=== PATIENT | male | born 1960 | race African-American/Black ===

== ENCOUNTER 2020-03-20 16:00 | Emergency (ER) | payer MEDICARE, SELFPAY ==
[2020-03-20 16:14] VITALS: BP 131/106; PULSE 72; RESP 20; TEMP 36.9; O2SAT 99
--- NOTE | 2020-03-20 16:22 | ECG_ITS ---
Measurements Intervals [place] Rate: 71 P: 63 IN: 157 QRS: 10 QRSD: 81 T: 51 QT: 378 QTc: 412 Interpretive Statements SINUS RHYTHM NORMAL ECG Electronically Signed On 03-20-2020 16:49:37 DRAWING IN HAND by Logan Castaneda D.O.
[2020-03-20 16:37] LABS: Basophils Absolute Auto 0.04 K/mm3 (0.00-0.10); Basophils Percent Auto 0.4 % (0.0-1.0); Eosinophils Absolute Auto 0.03 K/mm3 (0.02-0.50); Eosinophils Percent Auto 0.3 % (1.0-6.0); Hematocrit 37.9 % (40.0-54.0); Hemoglobin 12.1 g/dL (14.0-18.0); Immature Granulocyte Absolute 0.03 K/mm3 (0.00-0.00); Immature Granulocyte Percent A 0.3 % (0.0-0.0); Lymphocytes Absolute Auto 2.78 K/mm3 (1.10-4.50); Mean Corpuscular HGB Conc 31.9 g/dL (32.0-36.0); Mean Corpuscular Hemoglobin 28.6 pg (27.0-31.0); Mean Corpuscular Volume 89.6 fL (78.0-102.0); Mean Platelet Volume 9.2 fl (8.7-11.0); Monocytes Absolute Auto 0.58 K/mm3 (0.10-0.90); Monocytes Percent Auto 5.8 % (2.0-11.0); Neutrophils Absolute Auto 6.5 K/mm3 (1.7-7.2); Neutrophils Percent Auto 65.2 % (50.0-70.0); Platelet Count Result 262 K/mm3 (150-420); Red Blood Count 4.23 M/mm3 (4.70-6.10); Red Cell Distribution Width 13.6 % (11.6-14.4); White Blood Count 9.9 K/mm3 (4.8-10.8)
[2020-03-20 16:45] VITALS: BP 115/62; PULSE 67; RESP 20; O2SAT 100
--- NOTE | 2020-03-20 16:52 | ED.ABDPAIN ---
HPI - Abdominal Pain General Chief Complaint: Abdominal Pain Stated Complaint: AMB Time Seen by Provider: 03/20/20 16:07 Source: patient Mode of arrival: EMS Limitations: other (education status, he cannot read, and is a poor historian) History of Present Illness HPI narrative: Patient was out shopping and had cramping in his abdomen rather severe which brought him in. He also had some sharp pain in his left arm as well. He is taking Bentyl on a regular basis. He is scheduled to have a stress test soon, and this left arm pain is not something that is new. He has had no diarrhea. He has had pain all over at times. MD elicited complaint: abdominal pain Pain Consistency: intermittent Location: other (Left upper quadrant crampy abdominal pain, also sharp pain in left arm) Severity: similar to previous episodes Pain scale (0-10): 8 Quality: cramping Radiation: other (throughout abdomen) Exacerbating factors: nothing Relieving factors: nothing Associated symptoms: denies other symptoms Related Data Home Medications Medication Instructions Recorded Confirmed aspirin [Adult Low Dose Aspirin] 81 mg PO DAILY 03/20/20 03/20/20 atorvastatin 40 mg PO DAILY 03/20/20 03/20/20 dicyclomine 20 mg PO TID PRN 03/20/20 03/20/20 hydrocodone-acetaminophen 1 tablet PO Q6H PRN 03/20/20 03/20/20 lisinopril-hydrochlorothiazide 1 tablet PO BID 03/20/20 03/20/20 meclizine 25 mg PO DAILY PRN 03/20/20 03/20/20 Allergies Allergy/AdvReac Type Severity Reaction Status Date / Time No Known Allergies Allergy Verified 03/20/20 16:30 Review of Systems Review of Systems: Narrative: Abdominal pain, cramping in LUQ relatively severe, associated with some sharp left arm pain and hurting all over he says. He has had a cough and had a fever about 10 days ago. He still has a runny nose he says, but the cough and the fever has been gone for several days. Constitutional: Constitutional: Reports fatigue ENT: Reports vertigo Cardiovascular: Comments: Sharp chest pain at times, but not associated with activity. He is scheduled for a stress test. Gastrointestinal: Comments: Abdominal cramping is common with this patient, and he is on bentyl 20mg prn. PMFSH Family History Family History (Updated 03/20/20 @ 17:32 by Jordon Bryant MD) Other Hypertension Social History Social History (Updated 03/20/20 @ 17:34 by Jordon Bryant MD) Social History: marijuana, at times Alcohol intake: never Gender identity (if verbalized by the patient): Male Exam Const: General: no acute distress Orientation/consciousness: patient oriented x3 Other: morbidly obese HENMT: Head: normal to inspection Face and sinus: normal facial exam Other: no teeth, mucosa of mouth normal, throat not well visualized Eyes: Conjunctivae: conjunctivae normal Neck: Neck: normal visual inspection Chest: Chest palpation & inspection: normal inspection of the chest Resp: Effort & Inspection: normal respiratory effort Auscultation: clear to auscultation bilaterally Cardio: Rate: regular rate Rhythm: regular rhythm GI: GI Palp: Yes Soft to palpation Skin: General skin exam: normal color Neuro: General: patient oriented x3 Extrem: General: normal to inspection Psych: Appearance: grossly normal Affect: normal affect Thought content: Yes Normal thought content present Course Course Emergency Course: Labs were drawn. An EKG was done and was unremarkable. He took one of his hydrocodone tablets and one of his bentyl tablets just after he came in. After a few minutes he was feeling much better and his abdominal pain was gone. His arm pain had resolved before he came in. Labs were unremarkable except for an elevated protein and creatinine of 2.0. He decided to sign out AMA before his second troponin came back. We were repeating a troponin when he signed out AMA. His second troponin was negative when it came back. He is scheduled to see his doctor andrey
[2020-03-20 16:54] LABS: Alanine Aminotransferase 15 U/L (16-63); Albumin Level 3.3 g/dL (3.4-5.0); Alkaline Phosphatase 71 U/L (46-116); Anion Gap 9 mmol/L (8-16); Aspartate Amino Transferase 13 U/L (15-37); Bilirubin,Total 0.2 mg/dL (0.00-1.00); Blood Urea Nitrogen 20 mg/dL (7-18); Calcium 9.1 mg/dL (8.5-10.1); Carbon Dioxide 26 mmol/L (21-32); Chloride 101 mmol/L (98-108); Estimated CRCL calculation 61 ml/min; Estimated Glomerular Filt Rate 42; Glucose 84 mg/dL (70-99); Lactic Acid Reflex 1.6 mmol/L (0.4-2.0); Osmolality Calculated 283 mOsm/kg (285-295); Potassium 4.1 mmol/L (3.5-5.1); Sodium 136 mmol/L (136-145)
[2020-03-20 16:55] LABS: Lipase 100 U/L (73-393)
[2020-03-20 16:56] LABS: Troponin I < 0.02 ng/mL (0.00-0.056)
[2020-03-20 17:45] VITALS: BP 91/51; PULSE 67; RESP 20; O2SAT 98
[2020-03-20 19:00] VITALS: BP 109/66; PULSE 70; RESP 20; O2SAT 98
[2020-03-20 19:40] LABS: Troponin I < 0.02 ng/mL (0.00-0.056)
[2020-03-22 03:00] LABS: SARS-CoV-2 RNA PCR Negative
== END 2020-03-20 19:45 | disposition left against medical advice (07) ==
PROVIDERS: Emergency Provider Emergency Medicine
DX: R10.84 Generalized abdominal pain (principal); Z20.828 Contact with and (suspected) exposure to other viral communicable diseases
CPT/HCPCS: 36415; 80053; 83605; 83690; 84484; 85025; 87635; 93005; 99282; 99284; C9803; U0003

== ENCOUNTER 2021-02-03 17:19 | Emergency (ER) | payer MEDICARE, MEDICAID, SELFPAY ==
--- NOTE | ~2021-02-03 | XR_ITS ---
XR chest 1V portable DATE: 02/03/2021 18:11 INDICATION: Chest pain TECHNIQUE: Portable upright AP chest COMPARISON: None FINDINGS: No pulmonary infiltrate or consolidation, pleural effusion or pulmonary vascular congestion or pneumothorax is detected. Heart size appears normal. IMPRESSION: No active disease Reviewed, dictated and finalized at location A. IMPRESSION: No active disease
[2021-02-03 17:19] VITALS: BP 119/82; PULSE 63; RESP 20; TEMP 36.3; O2SAT 99
--- NOTE | 2021-02-03 17:41 | ECG_ITS ---
Measurements Intervals [place] Rate: 59 P: 65 RI: 157 QRS: 3 QRSD: 77 T: 63 QT: 398 QTc: 397 Interpretive Statements SINUS BRADYCARDIA DELAYED PRECORDIAL R/S TRANSITION LOW QRS VOLTAGE IN PRECORDIAL LEADS BORDERLINE ECG Electronically Signed On 02-04-2021 6:05:45 CDT by Logan Castaneda D.O.
[2021-02-03 17:54] LABS: Basophils Absolute Auto 0.03 K/mm3 (0.00-0.10); Basophils Percent Auto 0.4 % (0.0-1.0); Eosinophils Absolute Auto 0.14 K/mm3 (0.02-0.50); Eosinophils Percent Auto 1.8 % (1.0-6.0); Hemoglobin 12.2 g/dL (14.0-18.0); Immature Granulocyte Absolute 0.01 K/mm3 (0.00-0.00); Immature Granulocyte Percent A 0.1 % (0.0-0.0); Lymphocytes Absolute Auto 3.19 K/mm3 (1.10-4.50); Lymphocytes Percent Auto 41.1 % (18.0-42.0); Mean Corpuscular Hemoglobin 28.5 pg (27.0-31.0); Mean Corpuscular Volume 86.4 fL (78.0-102.0); Mean Platelet Volume 9.2 fl (8.7-11.0); Monocytes Absolute Auto 0.42 K/mm3 (0.10-0.90); Monocytes Percent Auto 5.4 % (2.0-11.0); Neutrophils Percent Auto 51.2 % (50.0-70.0); Platelet Count Result 296 K/mm3 (150-420); Red Blood Count 4.28 M/mm3 (4.70-6.10); Red Cell Distribution Width 13.6 % (11.6-14.4); White Blood Count 7.8 K/mm3 (4.8-10.8)
[2021-02-03 18:03] LABS: Alanine Aminotransferase 23 U/L (16-63); Albumin Level 3.1 g/dL (3.4-5.0); Alkaline Phosphatase 77 U/L (46-116); Aspartate Amino Transferase 16 U/L (15-37); Bilirubin,Total 0.3 mg/dL (0.00-1.00); Blood Urea Nitrogen 24 mg/dL (7-18); Calcium 8.4 mg/dL (8.5-10.1); Carbon Dioxide 29 mmol/L (21-32); Estimated Glomerular Filt Rate > 60; Glucose 106 mg/dL (70-99); Magnesium 1.9 mg/dL (1.8-2.4); Total Protein 7.7 g/dL (6.4-8.2); Troponin I 7.4 ng/L (0.00-60.4)
[2021-02-03 18:06] LABS: Ethanol < 3 mg/dL (0-6)
--- NOTE | 2021-02-03 18:22 | ED.CHESTPAIN ---
HPI - Chest Pain General Chief Complaint: Chest Pain Stated Complaint: chest pain Time Seen by Provider: 02/03/21 17:21 Source: patient, EMS and RN notes reviewed Mode of arrival: EMS Limitations: no limitations History of Present Illness MD complaint: chest pain Pertinent past history: other (episodes of cramping) Onset (ago): hour(s) (3) Timing of current episode: episodic Prior episodes: Yes Onset: other Pain location: left chest Pain radiation: none Severity: mild Pain scale (0-10): 3 Quality: dull Relieving factors: nothing Exacerbating factors: nothing Treatment prior to arrival: other (took home meds.) Risk Factors Pulmonary embolism risk factors: morbid obesity Related Data Home Medications Medication Instructions Recorded Confirmed aspirin [Adult Low Dose Aspirin] 81 mg PO DAILY 03/20/20 02/03/21 atorvastatin 40 mg PO DAILY 03/20/20 02/03/21 dicyclomine 20 mg PO TID PRN 03/20/20 02/03/21 hydrocodone-acetaminophen 1 tablet PO Q6H PRN 03/20/20 02/03/21 lisinopril-hydrochlorothiazide 1 tablet PO BID 03/20/20 02/03/21 meclizine 25 mg PO DAILY PRN 03/20/20 02/03/21 Allergies Allergy/AdvReac Type Severity Reaction Status Date / Time No Known Allergies Allergy Verified 03/20/20 16:30 Review of Systems Review of Systems: All systems reviewed & are unremarkable except as noted in HPI and below Musculoskeletal: Musculoskeletal: Reports myalgias and Reports muscle cramps PMFSH Past Medical History Medical History Hyperlipidemia Hypertension Family History Family History Other Hypertension Social History Social History Social History: marijuana, at times Alcohol intake: never Gender identity (if verbalized by the patient): Male Exam Const: General: no acute distress and alert Nutritional Appearance: obese Orientation/consciousness: patient oriented x3 HENMT: Head: normal to inspection Ears: external ears normal and TM's normal bilaterally General nose exam: Normal external nose present and Normal nares present Mouth: Yes lip normal and Yes moist mucous membranes Teeth and gingiva: dentition normal Eyes: Conjunctivae: conjunctivae normal Pupils: Equal, round and reactive pupils present EOM: EOMs intact bilaterally Neck: Neck: normal visual inspection Chest: Chest palpation & inspection: normal inspection of the chest Resp: Effort & Inspection: normal respiratory effort Auscultation: clear to auscultation bilaterally Cardio: Rate: regular rate Rhythm: regular rhythm GI: GI Palp: Yes Soft to palpation (non-tender) Percussion: Yes normal to percussion : General: Yes bladder normal to palpation and Yes no CVA tenderness Testes: Testes normal Back/Spine/Pelvis: Back: no CVA tenderness Skin: General skin exam: normal color Rashes: no rashes Neuro: General: patient oriented x3, moves all extremities, no focal motor deficits and CN's II-XI intact bilaterally Extrem: General: normal to inspection and no pedal edema Psych: Appearance: grossly normal and well kempt Mental Status: mental status grossly normal Affect: normal affect and Anxious affect present Attitude: cooperative Thought content: Yes Normal thought content present Course Course Emergency Course: Pt was stable in the ED. no acute chest pain. Reevaluation(s) Date: 02/03/21 Time: 18:15 Vital Signs Vital signs: Vital Signs Temperature 36.3 C L 02/03/21 17:19 Pulse Rate 63 02/03/21 17:19 Respiratory Rate 20 02/03/21 17:19 Blood Pressure 119/82 02/03/21 17:19 Pulse Oximetry 99 02/03/21 17:19 Temperature 36.3 C L 02/03/21 17:19 Pulse Rate 63 02/03/21 17:19 Respiratory Rate 20 02/03/21 17:19 Blood Pressure 119/82 02/03/21 17:19 Pulse Oximetry 99 02/03/21 17:19 MDM - Chest Pain Differential Diagn
[2021-02-03] MEDS: MAGNESIUM OXIDE 400 MG TABLET PO (18:39)
[2021-02-03] MEDS: SODIUM CHLORIDE 0.9% IV 1,000 ML 999 ML IV CONT (18:39)
[2021-02-03] MEDS: CALCIUM CARBONATE (TUMS) 500 MG (200 MG ELEMENTAL) 1000 MG PO (18:55)
[2021-02-03 19:50] VITALS: BP 99/66; PULSE 54; RESP 18; TEMP 37.1; O2SAT 99
[2021-02-03] MEDS: ASPIRIN 325 MG ENTERIC TABLET PO (20:05)
[2021-02-03] MEDS: POTASSIUM CHLORIDE 20 MEQ TABLET PO (20:05)
[2021-02-03 20:14] LABS: Anion Gap 4 mmol/L (8-16); Chloride 103 mmol/L (98-108); Osmolality Calculated 286 mOsm/kg (285-295); Potassium 3.9 mmol/L (3.5-5.1); Sodium 136 mmol/L (136-145)
[2021-02-03 20:55] LABS: Troponin I 6.4 ng/L (0.00-60.4)
== END 2021-02-03 20:13 | disposition home or self-care (01) ==
PROVIDERS: Emergency Provider Emergency Medicine
DX: R07.89 Other chest pain (principal); M62.838 Other muscle spasm; Z79.899 Other long term (current) drug therapy; E78.5 Hyperlipidemia, unspecified; I10 Essential (primary) hypertension
CPT/HCPCS: 36415; 71045; 80053; 80307; 83735; 84484; 85025; 93005; 96360; 99283; 99284; A9270; J7030

== ENCOUNTER 2021-04-16 09:50 | Emergency (ER) | payer MEDICARE, MEDICAID, SELFPAY ==
--- NOTE | ~2021-04-16 | XR_ITS ---
EXAMINATION: XR chest 1V portable EXAM DATE: 04/16/2021 10:46 INDICATION: chest pain since last night. TECHNIQUE: Portable AP frontal chest x-ray was obtained. Comparison is made to prior examination from 02/03/2021. FINDINGS: The lungs are clear. There are no pleural effusions. Cardiac silhouette is prominent but magnified on this AP technique. There is no pneumothorax suspected. The bones and soft tissues are unremarkable. IMPRESSION: No acute cardiopulmonary findings. Reviewed, dictated and finalized at location A. ER SHOULDER PAD
--- NOTE | ~2021-04-16 | XR_ITS ---
EXAMINATION: XR foot LT min 3V EXAM DATE: 04/16/2021 10:48 INDICATION: foot pain dorsal medial x 3days. TECHNIQUE: Left foot dorsoplantar, lateral and oblique projections obtained and reviewed. There is n o prior study for comparison. FINDINGS: Left metatarsal bones unremarkable. Small posterior calcaneal spur. No periosteal reactio n or band of sclerosis to suggest subacute stress fracture. There are no bony erosions identified. Th ere are no acute fractures or dislocations identified. There is no subcutaneous gas. The soft tissu e is unremarkable. There are no radiopaque foreign bodies. 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 IMPRESSION: No acute osseous findings. Reviewed, dictated and finalized at location A. LATION HELPER IMPRESSION: No acute osseous findings.
[2021-04-16 09:57] VITALS: BP 91/57; PULSE 67; PULSE 98; RESP 18; TEMP 36.2; O2SAT 98
--- NOTE | 2021-04-16 10:14 | ECG_ITS ---
Measurements Intervals [place] Rate: 56 P: 72 MT: 153 QRS: 19 QRSD: 82 T: 91 QT: 433 QTc: 418 Interpretive Statements SINUS BRADYCARDIA DELAYED PRECORDIAL R/S TRANSITION LOW QRS VOLTAGE IN PRECORDIAL LEADS BORDERLINE T WAVE ABNORMALITY- HIGH LATERAL LEADS BORDERLINE ECG Electronically Signed On 04-16-2021 10:38:52 TILE MACHINE OPERATOR by Logan Castaneda D.O.
[2021-04-16 10:56] VITALS: BP 99/65; PULSE 62; RESP 20; O2SAT 97
[2021-04-16 11:18] LABS: Basophils Absolute Auto 0.03 K/mm3 (0.00-0.10); Basophils Percent Auto 0.4 % (0.0-1.0); Eosinophils Percent Auto 1.4 % (1.0-6.0); Hematocrit 35.4 % (40.0-54.0); Hemoglobin 12.1 g/dL (14.0-18.0); Immature Granulocyte Absolute 0.01 K/mm3 (0.00-0.00); Immature Granulocyte Percent A 0.1 % (0.0-0.0); Lymphocytes Absolute Auto 3.19 K/mm3 (1.10-4.50); Lymphocytes Percent Auto 45.3 % (18.0-42.0); Mean Corpuscular HGB Conc 34.2 g/dL (32.0-36.0); Mean Corpuscular Hemoglobin 28.2 pg (27.0-31.0); Mean Corpuscular Volume 82.5 fL (78.0-102.0); Mean Platelet Volume 9.3 fl (8.7-11.0); Monocytes Absolute Auto 0.48 K/mm3 (0.10-0.90); Monocytes Percent Auto 6.8 % (2.0-11.0); Neutrophils Absolute Auto 3.2 K/mm3 (1.7-7.2); Platelet Count Result 280 K/mm3 (150-420); Red Blood Count 4.29 M/mm3 (4.70-6.10)
[2021-04-16] MEDS: KETOROLAC (*BKC) 60 MG/2 ML VIAL IM (11:21)
[2021-04-16] MEDS: ONDANSETRON INJ 4 MG/2 ML VIAL IV PUSH (11:21)
[2021-04-16] MEDS: SODIUM CHLORIDE 0.9% IV 500 ML 999 ML IV CONT (11:21)
[2021-04-16 11:24] VITALS: BP 130/80; PULSE 58; RESP 18; O2SAT 96
--- NOTE | 2021-04-16 11:29 | PC.NURSE ---
Pt resting on strecher comfortably. Pt aware of need for urine specimen but states he is unable to go at this time. Urinal provided. Pt resting on strecher with call light in reach. Aware waiting for lab results at this time.
[2021-04-16 11:41] LABS: Alanine Aminotransferase 15 U/L (16-63); Alkaline Phosphatase 82 U/L (46-116); Anion Gap 8 mmol/L (8-16); Aspartate Amino Transferase 13 U/L (15-37); Bilirubin,Total 0.4 mg/dL (0.00-1.00); Blood Urea Nitrogen 18 mg/dL (7-18); Calcium 8.7 mg/dL (8.5-10.1); Carbon Dioxide 28 mmol/L (21-32); Chloride 102 mmol/L (98-108); Estimated CRCL calculation 116 ml/min; Estimated Glomerular Filt Rate > 60; Glucose 99 mg/dL (70-99); NT Pro B Type Natriuretic Pept 39 pg/mL (0-125); Osmolality Calculated 287 mOsm/kg (285-295); Potassium 3.9 mmol/L (3.5-5.1); Sodium 138 mmol/L (136-145); Total Protein 8.2 g/dL (6.4-8.2)
[2021-04-16 11:43] LABS: Troponin I 7.8 ng/L (0.00-60.4)
--- NOTE | 2021-04-16 11:56 | PC.NURSE ---
PT still unable to void. Stating he went before coming here. Said he needs to cups of ice water before he will be able to provide a sample. ERP states pt can have water. Pt now resting on strecher with ice water on bedside table.
[2021-04-16 12:32] LABS: Add Urine Microscopic? NO; Appearance Urine Clear (Clear); Bilirubin Urine Negative (Negative); Blood Urine Negative (Negative); Color Urine Yellow (Yellow); Glucose Urine UA Negative (Negative); Ketones Urine Negative (Negative); Leukocyte Esterase Ur Negative LEU/UL (Negative); Nitrate Urine Negative (Negative); Protein Urine Negative (Negative); Specific Grav Ur 1.025 (1.010-1.020); Urobilinogen Urine 0.2 mg/dL (0.2-1.0)
[2021-04-16 12:40] LABS: Amphetamine Screen Urine Negative (Negative); Barbiturate Screen Urine Negative (Negative); Benzodiazepines Screen Urine Negative (Negative); Cannabinoid Screen Urine Positive (Negative); Cocaine Screen Urine Negative (Negative); Methadone Screen Urine Negative (Negative); Opiate Screen Urine Negative (Negative); Phencyclidine Screen Urine Negative (Negative)
--- NOTE | 2021-04-16 12:47 | ED.CHESTPAIN ---
HPI - Chest Pain General Chief Complaint: Chest Pain Stated Complaint: ambulance Time Seen by Provider: 04/16/21 09:52 Source: patient, EMS and RN notes reviewed Mode of arrival: EMS Limitations: no limitations History of Present Illness MD complaint: chest pain and other (and left foot pain x 1 week. ) Onset (ago): hour(s) (12) Timing of current episode: constant Prior episodes: Yes Onset: during rest Pain location: parasternal Pain radiation: none Severity: similar to previous episodes Pain scale (0-10): 3 Quality: aching and other (spasmodic) Exacerbating factors: nothing Associated symptoms: nausea Treatment prior to arrival: none Risk Factors Coronary artery disease risk factors: hypertension Thoracic aortic dissection risk factors: none Related Data Home Medications Medication Instructions Recorded Confirmed aspirin [Adult Low Dose Aspirin] 81 mg PO DAILY 03/20/20 04/16/21 atorvastatin 40 mg PO DAILY 03/20/20 04/16/21 lisinopril-hydrochlorothiazide 1 tablet PO BID 03/20/20 04/16/21 meclizine 25 mg PO DAILY PRN 03/20/20 04/16/21 gabapentin 100 mg PO TID 04/16/21 04/16/21 magnesium oxide 400 mg PO DAILY 04/16/21 04/16/21 magnesium oxide mg 04/16/21 ondansetron HCl 4 mg PO PRN PRN 04/16/21 04/16/21 Allergies Allergy/AdvReac Type Severity Reaction Status Date / Time No Known Allergies Allergy Verified 04/16/21 10:05 Review of Systems Review of Systems: All systems reviewed & are unremarkable except as noted in HPI and below PMFSH Past Medical History Medical History Hyperlipidemia Hypertension Family History Family History Other Hypertension Social History Social History Social History: marijuana, at times Alcohol intake: never Gender identity (if verbalized by the patient): Male Exam Const: General: cooperative, no acute distress, alert and awake Nutritional Appearance: obese Orientation/consciousness: patient oriented x3 Limitations: no limitations HENMT: Head: normal to inspection, normocephalic and atraumatic Ears: hearing grossly normal bilaterally, external ears normal and TM's normal bilaterally General nose exam: Normal external nose present and Normal nares present Face and sinus: normal facial exam Mouth: Yes Normal oral and palatal mucosa present, Yes lip normal, Yes tongue normal, Yes oropharynx normal and Yes moist mucous membranes Eyes: General: appearance normal, both eyes and all related structures Eyelids: eyelids normal Conjunctivae: conjunctivae normal Sclera: sclerae normal Cornea: corneas normal Pupils: Equal, round and reactive pupils present EOM: EOMs intact bilaterally Neck: Neck: normal visual inspection, full ROM and no lymphadenopathy Chest: Chest palpation & inspection: normal inspection of the chest and normal palpation of entire chest wall Resp: Effort & Inspection: normal respiratory effort and able to speak in complete sentences Auscultation: clear to auscultation bilaterally Percussion: percussion normal Cardio: Palpation: normal PMI Rate: regular rate and bradycardic Heart sounds: S1 normal heart sound present and S2 normal heart sound present Peripheral pulses: Peripheral pulses 2+ throughout GI: Inspection: normal to inspection, Pannus present and obesity GI Palp: Yes Soft to palpation and No Tenderness to palpation present (GI) Percussion: Yes normal to percussion Auscultation: normal bowel sounds : General: Yes bladder normal to inspection and Yes no CVA tenderness Back/Spine/Pelvis: Back: no CVA tenderness Thoracic/Lumbar Spine: thoracic and lumbar spine normal to inspection Skin: General skin exam: normal color Lesions: no lesions Rashes: no rashes Trauma: no lacerations or abrasions Hair: normal Nails: normal Neuro: General: oriented to person, patien
[2021-04-16 13:10] VITALS: PULSE 58; RESP 20; O2SAT 98
== END 2021-04-16 13:35 | disposition home or self-care (01) ==
PROVIDERS: Emergency Provider Emergency Medicine
DX: R07.89 Other chest pain (principal); M79.672 Pain in left foot; I10 Essential (primary) hypertension; E78.5 Hyperlipidemia, unspecified; Z79.899 Other long term (current) drug therapy
CPT/HCPCS: 36415; 71045; 73630; 80053; 80307; 81003; 83605; 83880; 84484; 85025; 93005; 96361; 96372; 96374; 99283; 99284; J1885; J2405; J7040